=== PATIENT | female | born 1940 | race Two or more races ===

== ENCOUNTER 2018-05-16 13:15 | Inpatient (IN) | payer OTHER ==
[~2018-05-16] VITALS: Ht 152.4 cm; Wt 72.6 kg
[2018-05-16] MEDS ORDERED: ACIDOPHILUS1 EAC1 PO (13:28)
[2018-05-16] MEDS ORDERED: BUPROPION XL150 MG PO (13:28)
[2018-05-16] MEDS ORDERED: SYNTHROID50 MCG PO (13:28)
[2018-05-16] MEDS ORDERED: RESTORIL30 M1 PO (13:28)
[2018-05-16] MEDS ORDERED: PEPCID40 MG PO (13:29)
== END 2018-06-16 19:13 | disposition home or self-care (01) | DRG 812 ==
LOC: ER 13:15 → MEDI 05-17 09:09 → MEDJ 05-18 13:05
PROC: 30233N1 Transfusion of Nonautologous Red Blood Cells into Peripheral Vein, Percutaneous Approach (ICD-10-PCS; 2018-05-16)
PROC: BB24ZZZ Computerized Tomography (CT Scan) of Bilateral Lungs (ICD-10-PCS; 2018-05-17)
PROC: 0W993ZX Drainage of Right Pleural Cavity, Percutaneous Approach, Diagnostic (ICD-10-PCS; 2018-05-19)
PROC: 4A033R1 Measurement of Arterial Saturation, Peripheral, Percutaneous Approach (ICD-10-PCS; principal; 2018-05-23)
PROC: 02HV33Z Insertion of Infusion Device into Superior Vena Cava, Percutaneous Approach (ICD-10-PCS; 2018-05-27)
PROC: B246ZZZ Ultrasonography of Right and Left Heart (ICD-10-PCS; 2018-06-03)
PROC: BW24ZZZ Computerized Tomography (CT Scan) of Chest and Abdomen (ICD-10-PCS; 2018-06-03)
DX: D63.0 Anemia in neoplastic disease (principal); J90 Pleural effusion, not elsewhere classified; N39.0 Urinary tract infection, site not specified; C34.11 Malignant neoplasm of upper lobe, right bronchus or lung; R09.02 Hypoxemia; D53.0 Protein deficiency anemia; D51.8 Other vitamin B12 deficiency anemias; E03.8 Other specified hypothyroidism; B95.62 Methicillin resistant Staphylococcus aureus infection as the cause of diseases classified elsewhere; F32.9 Major depressive disorder, single episode, unspecified; K59.09 Other constipation; Z89.622 Acquired absence of left hip joint; Z91.013 Allergy to seafood; Z89.612 Acquired absence of left leg above knee